=== PATIENT | female | born 1985 | race Caucasian/White ===

== ENCOUNTER 2019-06-28 15:18 | Emergency (ER) | payer OTHER ==
[~2019-06-28] VITALS: Ht 172.7 cm; Wt 99.8 kg
== END 2019-06-28 20:58 | disposition home or self-care (01) ==
LOC: ER 15:18
DX: K29.60 Other gastritis without bleeding (principal); T36.8X5A Adverse effect of other systemic antibiotics, initial encounter; Y92.89 Other specified places as the place of occurrence of the external cause